=== PATIENT | male | born 1940 | race Caucasian/White ===

== ENCOUNTER 2021-11-19 13:06 | Emergency (ER) | payer OTHER ==
[~2021-11-19] VITALS: Ht 172.7 cm; Wt 83.9 kg
[2021-11-19] MEDS ORDERED: ALTACE1.25 MG PO (13:24)
[2021-11-19] MEDS ORDERED: TOPROL XL25 M1 PO (13:24)
[2021-11-19] MEDS ORDERED: SERTRALINE20 MG/1 ML (13:25)
[2021-11-19] MEDS ORDERED: CHILDREN'S ASPI81 MG PO (13:25)
[2021-11-19] MEDS ORDERED: VYTORIN 10-201 EACH PO (13:26)
[2021-11-19] MEDS ORDERED: NORFLEX100MG PO (16:05)
== END 2021-11-19 16:09 | disposition home or self-care (01) ==
LOC: ER 13:06
DX: S49.81XA Other specified injuries of right shoulder and upper arm, initial encounter (principal); W18.39XA Other fall on same level, initial encounter; Y92.488 Other paved roadways as the place of occurrence of the external cause